=== PATIENT | female | born 1985 | race Caucasian/White ===

== ENCOUNTER 2016-12-30 14:13 | Emergency (ER) | payer MEDICAID ==
--- NOTE | 2016-12-30 15:11 | PD ---
HPI Chief Complaint Possibly leaking fluid Date Seen: Dec 30, 2016 Travel History International Travel<30 Days: No Contact w/Intl Traveler<30Days: No Known Affected Area: No History of Present Illness HPI Patient 31-year-old white female at 38 weeks 6 days presents complaining of possibly leaking fluid per vagina. She states that she just feels very wet in the pelvic area but no gross leakage of fluid no water running down her legs or anything like that, no bleeding noted regular contractions, heart rate tracing is reactive. Her amnio sure is negative today Para: 0 : 1 History Social History Alcohol Use: No Tobacco Use: No Substance Abuse: No Review of Systems General / Constitutional: No: Fever, Weight Gain, Chills, Other Eyes: No: Diploplia, Blurred Vision, Visual changes, Pain, Photophobia HENT: No: Headaches, Vertigo, Lightheadedness Cardiovascular: No: Irregular Rhythm, Chest Pain or Discomfort, Palpitations, Tachycardia, Syncope, Varicosities, Edema, Cyanosis Respiratory: No: Cough, Short of Breath, Other Gastrointestinal: No: Nausea, Vomiting, Diarrhea Genitourinary: No: Decreased Urinary Output, Oliguria Musculoskeletal: No: Limited ROM, Weakness, Cramping, Edema, Pain Skin: No Rash, No Itching, No Dryness, No Lumps, No Change in Pigmentation, No Change in Nails, No Alopecia, No Lesions Neurologic: No: Weakness, Dizziness, Syncope, Focal Abnormalities, Coordination Problem, Headache, Slurred Speech, Seizures Psychiatric: No: Depression, Suicidal Ideations, Homicidal Ideation Endocrine: No: Heat Intolerance, Cold Intolerance, Polydipsia, Polyuria, Other Physical Exam Narrative GENERAL: Well-nourished, well-developed patient. SKIN: Warm and dry. HEAD: Normocephalic and atraumatic. EYES: No scleral icterus. No injection or drainage. ENT: No nasal drainage noted. Mucous membranes pink. Airway patent. NECK: Supple, trachea midline. No JVD. CARDIOVASCULAR: Regular rate and rhythm without murmurs, gallops, or rubs. RESPIRATORY: Breath sounds equal bilaterally. No accessory muscle use. BREASTS: Bilateral exam showed no masses , no retractions, no nipple discharge. ABDOMEN/GI: Abdomen soft, non-tender, bowel sounds present, no rebound, no guarding Gravid to [39-] weeks size Fundal Height: [-39] GENITOURINARY: Amnio sure negative Membranes: [intact ] Uterine Contractions: [none-] FHT's: Category: [-1] Baseline: [133-] Reactive: [-yes] Variability: [mod-] Decels: [none-] EXTREMITIES: No cyanosis or edema. BACK: Nontender without obvious deformity. No CVA tenderness. NEUROLOGICAL: Awake and alert. Motor and sensory grossly within normal limits. Five out of 5 muscle strength in all muscle groups. Normal speech. Data Data Labs Amnio sure negative MDM Interpretation(s) Patient 31-year-old white female at 38-39 weeks presents combining of leaking fluid. Patient's had no gross ruptured membranes she's just noticed that she's felt very " wet" in the vaginal pelvic area. No bleeding or contractions noted heart rate is reactive, amnio sure was negative today Plan Plan to discharge home patient to observe her condition look for any further leakage bleeding or other problem Diagnosis Diagnosis: Primary Impression: No leakage of amniotic fluid into vagina Disposition: 01 DISCHARGE HOME Condition: Stable Pepe Thibodeaux II, MD Dec 30, 2016 15:11
== END 2016-12-30 15:19 | disposition home or self-care (01) ==
LOC: HOBED 14:13
DX: N89.8 Other specified noninflammatory disorders of vagina (principal); Z34.93 Encounter for supervision of normal pregnancy, unspecified, third trimester
CPT/HCPCS: 59025; 84112

== ENCOUNTER 2017-01-07 13:17 | Inpatient (IN) | payer MEDICAID ==
[~2017-01-07] VITALS: Ht 170.2 cm; Wt 81.2 kg
[2017-01-07] VITALS (21 sets, daily range): BP systolic 121–153; BP diastolic 66–93; PULSE 71–105; RESP 18–20; TEMP 97.4–98.4
[2017-01-07] MEDS ORDERED: LACTATED RINGER'S 1000 ML INJ 1,000 ML IV PRN (14:20)
[2017-01-07] MEDS ORDERED: SODIUM CHLOR 0.9% 1000 ML INJ 1,000 ML OTHER PRN (14:20)
[2017-01-07] MEDS ORDERED: OXYTOCIN 30 UNITS-500ML PREMIX 500 ML IV ONE (14:30)
[2017-01-07] MEDS ORDERED: ONDANSETRON HCL 4 MG/2 ML VIAL IV PRN (14:30)
[2017-01-07] MEDS ORDERED: CITRIC ACID-SODIUM CITRATE LIQ 30 ML UDC PO SCH (14:30)
[2017-01-07] MEDS ORDERED: DINOPROSTONE 10 MG VAG INSERT VAGINAL ONE (14:30)
[2017-01-07] MEDS ORDERED: MINERAL OIL 10 ML VIAL TOPICAL PRN (14:30)
[2017-01-07] MEDS ORDERED: LIDOCAINE HCL 1% 50 ML VIAL INFIL PRN (14:30)
[2017-01-07] MEDS ORDERED: LIDOCAINE HCL 1% 50 ML VIAL I-DERMAL PRN (14:30)
[2017-01-07] MEDS ORDERED: SODIUM CHLORID 0.9% 500 ML INJ 500 ML IV PRN (14:30)
--- NOTE | 2017-01-07 14:35 | HHI.HP ---
HPI Chief Complaint decreased movement, non-reassuring testing in office Date Seen: Jan 07, 2017 Time Seen: 11:30 Travel History International Travel<30 Days: No Contact w/Intl Traveler<30Days: No Known Affected Area: No History of Present Illness HPI 31 yo G1 with wise IUP at 40 wks today by LMP c/w 12 wk sonogram, seen in the office today for routine OB visit with c/o decreased movement. BPP showed decreased amniotic fluid, TAINA 6, and BPP 4/8 with -2 for tone and movement. NST reassuring but not reactive. Pt denies LOF, VB or contractions, feeling pelvic pressure. Pain 2/10 in pelvis. Discussed with patient indication for induction due to non-reassuring testing at term, sent to L&D for admission. 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) uterine fibroid (6x6cm, anterior) Obstetric History Obstetric History G1 = current, female Past Surgical History Narrative Surgical breast augmentation 2011 tonsillectomy Family History Narrative Family History personal history, cystic fibrosis carrier (father of baby negative) Family History: Negative Social History Alcohol Use: No Tobacco Use: No Substance Abuse: No Allergies-Medications (Allergen,Severity, Reaction): Coded Allergies: No Known Allergies (Unverified , 01/07/17) Review of Systems General / Constitutional: Weight Gain, No: Fever, Chills, Other Eyes: No: Diploplia, Blurred Vision, Visual changes, Pain, Photophobia HENT: No: Headaches, Vertigo, Lightheadedness Cardiovascular: No: Irregular Rhythm, Chest Pain or Discomfort, Palpitations, Tachycardia, Syncope, Varicosities, Edema, Cyanosis Respiratory: No: Cough, Short of Breath, Other Gastrointestinal: No: Nausea, Vomiting, Diarrhea Genitourinary: Pelvic Pain (pressure), No: Decreased Urinary Output, Oliguria Musculoskeletal: No: Limited ROM, Weakness, Cramping, Edema, Pain Skin: No Rash, No Itching, No Dryness, No Lumps, No Change in Pigmentation, No Change in Nails, No Alopecia, No Lesions Neurologic: No: Weakness, Dizziness, Syncope, Focal Abnormalities, Coordination Problem, Headache, Slurred Speech, Seizures Psychiatric: No: Depression, Suicidal Ideations, Homicidal Ideation Endocrine: No: Heat Intolerance, Cold Intolerance, Polydipsia, Polyuria, Other Physical Exam Narrative GENERAL: Well-nourished, well-developed patient. SKIN: Warm and dry. HEAD: Normocephalic and atraumatic. EYES: No scleral icterus. No injection or drainage. ENT: No nasal drainage noted. Mucous membranes pink. Airway patent. NECK: Supple, trachea midline. No JVD. CARDIOVASCULAR: Regular rate and rhythm without murmurs, gallops, or rubs. RESPIRATORY: Breath sounds equal bilaterally. No accessory muscle use. BREASTS: deferred. ABDOMEN/GI: Abdomen soft, non-tender, bowel sounds present, no rebound, no guarding Gravid to [40] weeks size Fundal Height: [40] GENITOURINARY: External Genitalia: intact and normal in appearance BUS glands: [wnl] Cervix: [posterior, soft] Dilatation: [1-2] Effacement: [th] Station: [-3] Presentation: [vtx] Membranes: [intact] Uterine Contractions: [none] FHT's: 130s in office on NST, reassuring but not reactive EXTREMITIES: No cyanosis, +2 edema to ankles b/l. BACK: Nontender without obvious deformity. No CVA tenderness. NEUROLOGICAL: Awake and alert. Motor and sensory grossly within normal limits. Five out of 5 muscle strength in all muscle groups. Normal speech. Data Data Vital Signs Reviewed: Yes Orders Admit To Inpatient (01/07/17 ) Code Status (01/07/17 14:20) Vital Signs (Adult) .Per protocol (01/07/17 14:20) Activity Oob Ad Pauline (01/07/17 14:20) Heart (01/07/17 14:20) Amnioinfusion (01/07/17 14:20) Urinary Catheter Management .ONCE (01/07/17 14:20) Diet Liquid (01/07/17 Dinner) Lactated Ringer's 1000 Ml Inj (Lr 1000 M (01/07/17 14:20) Lactated Ringer's 1000 Ml Inj (Lr 1000 M (01/07/17 14:20) Sodium Chlorid 0.9% 500 Ml Inj (Ns 500 M (01/07/17 14:30) Sodium Chlor 0.9% 1000 Ml Inj (Ns 1000 M (01/07/17 14:40) Lidocaine 1% Inj (50 Ml) (Xylocaine 1% I (01/07/17 14:30) Citric Acid-Sodium Citrate Liq (Bicitra (01/07/17 14:30) Ondansetron Inj (Zofran Inj) (01/07/17 14:30) Fentanyl Inj (Fentanyl Inj) (01/07/17 14:30) Fentanyl Inj (Fentanyl Inj) (01/07/17 14:30) Complete Blood Count With Diff (01/07/17 14:20) Hold Clot (01/07/17 14:20) Abo/Rh Blood Type (01/07/17 14:20) Urinalysis - C+S If Indicated (01/07/17 14:20) Resp Oxygen Non Rebreathe Mask (01/07/17 ) ^ Epidural / Intrathecal Infus (01/07/17 14:20) Oxytocin 30 Units-500ml Premix (Pitocin (01/07/17 14:30) Lidocaine 1% Inj (50 Ml) (Xylocaine 1% I (01/07/17 14:30) Light Mineral Oil (Muri-Lube Oil) (01/07/17 14:30) Inpatient Certification (01/07/17 ) Specimen To Be Collected PRN (01/07/17 14:20) ^ Labor Induction (01/07/17 14:20) ^ Vaginal Insert (01/07/17 14:20) ^ Vaginal Lavage (01/07/17 14:20) Heart (01/07/17 14:20) Sodium Chlor 0.9% 1000 Ml Inj (Ns 1000 M (01/07/17 14:20) Dinoprostone Vag Insert (Cervidil Vag In (01/07/17 14:30) Assessment/Plan Problem List: (1) Labor and delivery indication for care or intervention (2) Decreased movement affecting management of , antepartum (3) Oligohydramnios in wise in third trimester Assessment and Plan 31 yo G1 with wise IUP at 40w0d by LMP c/w 12 wk sonogram, admit for term labor induction due to decreased FM, non-reassuring office testing 1) IOL: BPP in office 4/8, NST reassuring but not reactive, TAINA borderline at 6cm, -2 for tone & movement; d/w pt risk of failed induction, intolerance , and possibility of ; pt voices understanding of risks and consents to induction; will plan cervidil on admission and additional induction measures as necessary 2) GBS negative 3) CF carrier: father of baby negative 4) increased T21 risk (1:18) on quad screen: informaseq negative, anatomy sono & growth wnl, s/p MFM consult in [place], declined amnio 5) anemia: Hgb 9.7, pt intolerance of iron tablets, increased dietary sources 6) anterior fibroid 6 x 6 cm; anterior placenta as well: d/w pt AT LENGTH risk of hemorrhage at delivery, possibility of retained placenta or difficult placental delivery, risk of need for transfusion, etc. 7) status: vertex, female, non-reassuring testing in office today Discharge Planning routine for 2-3d PP Aicha Mayo MD Jan 07, 2017 14:35
[2017-01-07] MEDS ORDERED: SODIUM CHLOR 0.9% 1000 ML INJ 1,000 ML IV PRN (14:40)
[2017-01-07] MEDS ORDERED: OXYTOCIN 30 UNITS-500ML PREMIX 500 ML IV SCH (16:15)
[2017-01-07] MEDS: LACTATED RINGER'S 1000 ML INJ 1,000 ML IV SCH ×2 (16:53→22:20)
[2017-01-07 17:24] LABS: AUTOMATED NEUTROPHIL # 10.8 TH/MM3 (1.8-7.7); BASOPHIL % 0.3 % (0.0-2.0); EOSINOPHIL # 0.1 TH/MM3 (0-0.4); EOSINOPHIL % 0.4 % (0.0-4.0); HEMATOCRIT 32.1 % (35.0-46.0); LYMPH % 13.6 % (9.0-44.0); LYMPHOCYTE # 1.8 TH/MM3 (1.0-4.8); MEAN CELL VOLUME 76.5 FL (80.0-100.0); MEAN CORPUSCULAR HEMOGLOBIN 24.3 PG (27.0-34.0); MEAN CORPUSCULAR HGB CONC 31.8 % (32.0-36.0); NEUT % 79.7 % (16.0-70.0); PLATELET COUNT 211 TH/MM3 (150-450); RED BLOOD COUNT 4.19 MIL/MM3 (4.00-5.30); RED CELL DISTRIBUTION WIDTH 17.4 % (11.6-17.2); WHITE BLOOD COUNT 13.5 TH/MM3 (4.0-11.0)
[2017-01-07 17:28] LABS: BLOOD, URINE NEG (NEG); COMMENT (UR) CULT NOT INDICATED; CULTURE IF INDICATED CULT NOT INDICATED; GLUCOSE,URINE NEG (NEG); KETONE, URINE NEG (NEG); NITRITE,URINE NEG (NEG); URINE COLOR YELLOW (YELLW/STRAW)
[2017-01-07 17:34] LABS: HEMO FLAGS AUTO DIFF
[2017-01-07 18:21] LABS: BANDS 4 % (0-6); METAMYELOCYTES 1 % (0-1); NEUTROPHIL # MANUAL DIFF 10.8 TH/MM3 (1.8-7.7); POLYS (SEG NEUTROPHILS) 75 % (16-70); WBC DIFF SAMPLE 100
[2017-01-07 18:22] LABS: PLATELET ESTIMATE SMEAR NORMAL (NORMAL); PLATELET MORPHOLOGY NORMAL (NORMAL); SCAN/DIFF FINAL DIFF MANUAL
--- NOTE | 2017-01-07 18:27 | PD.LABORPN ---
Subjective Subjective comfortable here for low fluid and some UCs excited Objective Vital Signs Vital Signs Date Time Temp Pulse Resp B/P Pulse Ox O2 Delivery O2 Flow Rate FiO2 01/07/17 18:06 98.4 78 18 134/80 01/07/17 14:29 97.4 01/07/17 14:29 98 20 01/07/17 14:28 139/91 Objective Pelvic Exam: /anterioe -1 arom clear category 1 pelvis clinically adequate EWF 7 Assessment/Plan Problem List: (1) Labor and delivery indication for care or intervention (2) Decreased movement affecting management of , antepartum (3) Oligohydramnios in wise in third trimester Assessment and Plan 40+ week IUP oligo on BPP cecil for arom and pitocin if indicated. Liss Peacock MD Jan 07, 2017 18:27
[2017-01-07] MEDS ORDERED: fentaNYL 2MCG-BUPIV 0.125% INJ 100 ML ONE (21:26)
[2017-01-07] MEDS ORDERED: ePHEDrine/NS 25 MG/5 ML SYR ONE (21:27)
[2017-01-07] MEDS ORDERED: NO SYSTEM NARCOTICS PRN (22:30)
[2017-01-07] MEDS ORDERED: ePHEDrine/NS 25 MG/5 ML SYR IV PRN (22:30)
[2017-01-07] MEDS ORDERED: fentaNYL 2MCG-BUPIV 0.125% 100 ML EPIDURAL SCH (22:30)
[2017-01-07] MEDS ORDERED: DO NOT ADMINISTER ANTICOAGULANTS PRN (22:30)
[2017-01-08] VITALS (16 sets, daily range): BP systolic 107–137; BP diastolic 56–86; PULSE 61–87; RESP 16–20; TEMP 97.8–98.6
--- NOTE | 2017-01-08 02:27 | PD.OB.DELI ---
Anesthesia: Epidural Episiotomy: None Vaginal Delivery: Normal Presentation: Occiput anterior Nuchal Cord: None Delayed cord clamping (45 sec): Yes Infant: Female One Minute : 9 Five Minute : 9 Weight: 7 Placenta: Spontaneous delivery Laceration: 2 deg Repair: Chromic running Estimated blood loss: average Liss Peacock MD Jan 08, 2017 02:27
[2017-01-08] MEDS ORDERED: WITCH HAZEL 50%/GLYCERIN 12.5% 40 PAD JAR TOPICAL PRN (02:30)
[2017-01-08] MEDS ORDERED: ONDANSETRON ODT 4 MG TAB PO PRN (02:30)
[2017-01-08] MEDS ORDERED: BENZOCAINE 20% TOPICAL SPRAY 60 ML CAN TOPICAL PRN (02:30)
[2017-01-08] MEDS ORDERED: ALUMINUM/MAGNESIUM/SIMETH 30 ML CUP PO PRN (02:30)
[2017-01-08] MEDS ORDERED: SODIUM CHLORIDE 0.9% FLUSH 10 ML FLUSH IV FLUSH PRN (02:30)
[2017-01-08] MEDS ORDERED: OXYTOCIN 30 UNITS-500ML PREMIX 500 ML IV SCH (02:30)
[2017-01-08] MEDS ORDERED: ZOLPIDEM TARTRATE 5 MG TAB PO PRN (02:30)
[2017-01-08] MEDS ORDERED: ACETAMINOPHEN 325 MG TAB PO PRN (02:30)
[2017-01-08] MEDS ORDERED: ONDANSETRON HCL 4 MG/2 ML VIAL ONE (06:22)
[2017-01-08] MEDS: IBUPROFEN 600 MG TAB PO PRN (06:35)
[2017-01-08] MEDS ORDERED: CARBOPROST TROMETHAMINE 250 MCG/ML VIAL ONE (06:40)
[2017-01-08] MEDS ORDERED: MEPERIDINE HCL 50 MG/ML VIAL ONE (06:45)
--- NOTE | 2017-01-08 07:51 | HHI.OB ---
Subjective Post Day: 0 Remarks Had significant PPH and required manual evacuation of uterus with copious clot. very uncomfortable Objective Vitals/I&O Vital Signs Date Time Temp Pulse Resp B/P Pulse Ox O2 Delivery O2 Flow Rate FiO2 01/08/17 06:30 18 01/08/17 06:08 18 137/72 01/08/17 06:08 69 01/08/17 05:00 82 18 01/08/17 05:00 133/75 01/08/17 03:15 18 01/08/17 02:56 18 01/08/17 02:45 84 18 133/73 01/08/17 02:30 85 18 122/76 01/08/17 01:23 18 01/08/17 01:23 98.0 01/08/17 00:45 18 01/08/17 00:43 61 113/56 01/08/17 00:15 18 01/07/17 23:45 18 01/07/17 22:56 18 121/66 01/07/17 22:50 90 01/07/17 22:32 18 01/07/17 22:22 18 01/07/17 22:22 122/76 01/07/17 22:20 74 01/07/17 22:10 90 01/07/17 22:08 153/73 01/07/17 22:04 18 01/07/17 21:55 148/93 01/07/17 21:55 105 01/07/17 21:50 81 01/07/17 21:49 18 146/81 01/07/17 21:45 71 01/07/17 21:15 142/73 01/07/17 21:15 98.0 88 01/07/17 21:14 18 01/07/17 20:30 18 01/07/17 19:53 18 01/07/17 19:15 18 01/07/17 18:06 98.4 78 18 134/80 01/07/17 14:29 97.4 01/07/17 14:29 98 20 01/07/17 14:28 139/91 Objective Remarks GENERAL: Well-nourished, well-developed patient. CARDIOVASCULAR: Regular rate and rhythm without murmurs, gallops, or rubs. RESPIRATORY: Breath sounds equal bilaterally. No accessory muscle use. ABDOMEN/GI: Abdomen soft, non-tender. Fundus: Firm,but above U GENITOURINARY: Light to moderate bleeding now--watch for more clots EXTREMITIES: No cyanosis or edema, non-tender, without signs of DVT. Medications and IVs Current Medications Medications (Trade) Dose Ordered Sig/Shruthi Route Start Time Stop Time Status Last Admin (NS Flush) 2 ml BID IV FLUSH 01/08/17 09:00 (NS Flush) 2 ml UNSCH PRN IV FLUSH 01/08/17 02:30 (Tylenol) 650 mg Q4H PRN PO 01/08/17 02:30 (Motrin) 600 mg Q6H PRN PO 01/08/17 02:30 01/08/17 06:35 (Americaine 20% Top Spr) 1 spray Q4H PRN TOPICAL 01/08/17 02:30 01/08/17 06:35 (Tucks Pads) 1 applic QID PRN TOPICAL 01/08/17 02:30 01/08/17 06:35 (Kathy-Colace) 2 tab Q12H PRN PO 01/08/17 02:30 (Ambien) 5 mg HS PRN PO 01/08/17 02:30 (M-M-R Ii Inj) 0.5 ml ONCE ONCE SQ 01/08/17 16:00 01/08/17 16:01 (Boostrix Inj) 0.5 ml ONCE ONCE IM 01/08/17 16:00 01/08/17 16:01 (Mag-Al Plus Susp Liq) 15 ml Q8H PRN PO 01/08/17 02:30 (Zofran Odt) 4 mg Q6H PRN PO 01/08/17 02:30 Assessment/Plan Problem List: (1) Labor and delivery indication for care or intervention (2) Decreased movement affecting management of , antepartum (3) Oligohydramnios in wise in third trimester Assessment and Plan Unremarkable delivery but difficulty with bleeding as predicted by presence of 6cm anterior fibroid if manual evacuation did not adequately address may need D &C Discharge Planning routine for 2-3d PP if bleeding does not recur. H & H and Ferritin this am. Liss Peacock MD Jan 08, 2017 07:51
[2017-01-08] MEDS ORDERED: SODIUM CHLORIDE 0.9% FLUSH 10 ML FLUSH IV FLUSH SCH (09:00)
[2017-01-08 11:11] LABS: AUTOMATED NEUTROPHIL # 25.2 TH/MM3 (1.8-7.7); BASOPHIL # 0.1 TH/MM3 (0-0.2); BASOPHIL % 0.3 % (0.0-2.0); EOSINOPHIL % 0.1 % (0.0-4.0); LYMPH % 6.2 % (9.0-44.0); LYMPHOCYTE # 1.8 TH/MM3 (1.0-4.8); MEAN CELL VOLUME 76.2 FL (80.0-100.0); MEAN CORPUSCULAR HEMOGLOBIN 24.5 PG (27.0-34.0); MEAN CORPUSCULAR HGB CONC 32.2 % (32.0-36.0); MONO % 4.4 % (0.0-8.0); PLATELET COUNT 221 TH/MM3 (150-450); RED CELL DISTRIBUTION WIDTH 17.3 % (11.6-17.2); WHITE BLOOD COUNT 28.3 TH/MM3 (4.0-11.0)
[2017-01-08 11:25] LABS: HEMO FLAGS AUTO DIFF
[2017-01-08] MEDS ORDERED: DIPHTH/TETANUS/ACEL PERTUSSIS (BOOSTER) 0.5 ML VIAL/PFS IM ONE (16:00)
[2017-01-08] MEDS ORDERED: MEASLES, MUMPS, RUBELLA VACCINE 0.5 ML VIAL SQ ONE (16:00)
[2017-01-08] MEDS ORDERED: AMMONIA AROMATIC INHALANT 0.33 ML ONE (23:11)
[2017-01-09] MEDS: DOCUSATE SODIUM 50 MG/SENNA 8.6 MG TAB PO PRN ×2 (00:25→22:47)
[2017-01-09] MEDS: IBUPROFEN 600 MG TAB PO PRN ×4 (00:25→22:46)
[2017-01-09 03:00] VITALS: BP 105/73; PULSE 74; RESP 18; TEMP 98.5
[2017-01-09 08:00] VITALS: BP 111/69; PULSE 76; RESP 16; TEMP 98.2; O2SAT 97
--- NOTE | 2017-01-09 11:19 | HHI.OB ---
Subjective Post Day: 1 Remarks no complaints Objective Vitals/I&O Vital Signs Date Time Temp Pulse Resp B/P Pulse Ox O2 Delivery O2 Flow Rate FiO2 01/09/17 08:00 98.2 76 16 111/69 97 01/09/17 03:00 98.5 74 18 105/73 01/08/17 20:05 98.6 82 20 107/61 01/08/17 15:05 98.2 01/08/17 15:05 87 18 127/82 01/08/17 11:45 74 16 116/79 01/08/17 11:45 98.6 Objective Remarks GENERAL: Well-nourished, well-developed patient. CARDIOVASCULAR: Regular rate and rhythm without murmurs, gallops, or rubs. RESPIRATORY: Breath sounds equal bilaterally. No accessory muscle use. ABDOMEN/GI: Abdomen soft, non-tender. Fundus: Firm GENITOURINARY: Light to moderate bleeding now--watch for more clots EXTREMITIES: No cyanosis or edema, non-tender, without signs of DVT. Medications and IVs Current Medications Medications (Trade) Dose Ordered Sig/Shruthi Route Start Time Stop Time Status Last Admin (NS Flush) 2 ml BID IV FLUSH 01/08/17 09:00 01/09/17 00:26 (NS Flush) 2 ml UNSCH PRN IV FLUSH 01/08/17 02:30 (Tylenol) 650 mg Q4H PRN PO 01/08/17 02:30 (Motrin) 600 mg Q6H PRN PO 01/08/17 02:30 01/09/17 07:21 (Americaine 20% Top Spr) 1 spray Q4H PRN TOPICAL 01/08/17 02:30 01/08/17 06:35 (Tucks Pads) 1 applic QID PRN TOPICAL 01/08/17 02:30 01/08/17 06:35 (Kathy-Colace) 2 tab Q12H PRN PO 01/08/17 02:30 01/09/17 00:25 (Ambien) 5 mg HS PRN PO 01/08/17 02:30 (Mag-Al Plus Susp Liq) 15 ml Q8H PRN PO 01/08/17 02:30 (Zofran Odt) 4 mg Q6H PRN PO 01/08/17 02:30 01/08/17 10:55 Assessment/Plan Problem List: (1) Labor and delivery indication for care or intervention (2) Decreased movement affecting management of , antepartum (3) Oligohydramnios in wise in third trimester (4) Leiomyoma (5) Vaginal delivery Assessment and Plan s/p _PPD#1 Unremarkable delivery but difficulty with bleeding as predicted by presence of 6cm anterior fibroid Discharge Planning routine for 2-3d PP if bleeding does not recur. Attending Attestation pt seen by Ayala Harry MD Jan 09, 2017 11:19
[2017-01-10] MEDS: IBUPROFEN 600 MG TAB PO PRN (08:31)
--- NOTE | 2017-01-10 10:10 | HHI.OB ---
Subjective Post Day: 2 Remarks no complaints, Objective Other Results vss afeb Objective Remarks GENERAL: Well-nourished, well-developed patient. CARDIOVASCULAR: Regular rate and rhythm without murmurs, gallops, or rubs. RESPIRATORY: Breath sounds equal bilaterally. No accessory muscle use. ABDOMEN/GI: Abdomen soft, non-tender. Fundus: Firm GENITOURINARY: Light to moderate bleeding now--watch for more clots EXTREMITIES: No cyanosis or edema, non-tender, without signs of DVT. Medications and IVs Current Medications Medications (Trade) Dose Ordered Sig/Shruthi Route Start Time Stop Time Status Last Admin (NS Flush) 2 ml BID IV FLUSH 01/08/17 09:00 01/09/17 00:26 (NS Flush) 2 ml UNSCH PRN IV FLUSH 01/08/17 02:30 (Tylenol) 650 mg Q4H PRN PO 01/08/17 02:30 01/10/17 08:31 (Motrin) 600 mg Q6H PRN PO 01/08/17 02:30 01/10/17 08:31 (Americaine 20% Top Spr) 1 spray Q4H PRN TOPICAL 01/08/17 02:30 01/08/17 06:35 (Tucks Pads) 1 applic QID PRN TOPICAL 01/08/17 02:30 01/08/17 06:35 (Kathy-Colace) 2 tab Q12H PRN PO 01/08/17 02:30 01/09/17 22:47 (Ambien) 5 mg HS PRN PO 01/08/17 02:30 (Mag-Al Plus Susp Liq) 15 ml Q8H PRN PO 01/08/17 02:30 (Zofran Odt) 4 mg Q6H PRN PO 01/08/17 02:30 01/08/17 10:55 Assessment/Plan Problem List: (1) Labor and delivery indication for care or intervention (2) Decreased movement affecting management of , antepartum (3) Oligohydramnios in wise in third trimester (4) Leiomyoma (5) Vaginal delivery Assessment and Plan s/p _PPD#2 Unremarkable delivery but difficulty with bleeding as predicted by presence of 6cm anterior fibroid Discharge Planning routine for 2-3d PP if bleeding does not recur. Attending Attestation pt seen by Ayala Harry MD Jan 10, 2017 10:10
[2017-01-10] MEDS ORDERED: IBUP-232 PO (10:11)
--- NOTE | 2017-01-10 10:11 | HHI.DCPOC ---
Discharge Care Plan Your Health Problems Are: Pelvic pain Report Symptoms to Your Doctor -Temperature above 100.5 degrees -Redness, of incision or excessive or foul smelling drainage -Unusual pain or calf pain -Increased vaginal bleeding -Painful or difficulty urinating -Feelings of extreme sadness or anxiety after 2 weeks Goals to Promote Your Health * To prevent worsening of your condition and complications * To maintain your health at the optimal level Directions to Meet Your Goals Take your medications as prescribed Follow your dietary instruction Follow activity as directed Ensure plenty of rest for recovery Drink fluids for hydration Keep your appointments as scheduled Take your immunizations and boosters as scheduled If your symptoms worsen call your PCP, if no PCP go to Urgent Care Center or Emergency Room Smoking is Dangerous to Your Health. Avoid second hand smoke Call the 24-hour crisis hotline for domestic abuse at Ayala Ramirez MD Jan 10, 2017 10:11
== END 2017-01-10 14:41 | disposition home or self-care (01) | DRG 768 ==
LOC: H2EB 13:17 → H1EA 01-08 11:36
PROVIDERS: ADMIT Obstetrics & Gynecology; ATTEND Obstetrics & Gynecology
PROC: 3E033VJ Introduction of Other Hormone into Peripheral Vein, Percutaneous Approach (ICD-10-PCS; 2017-01-07)
PROC: 10907ZC Drainage of Amniotic Fluid, Therapeutic from Products of Conception, Via Natural or Artificial Opening (ICD-10-PCS; 2017-01-07)
PROC: 10E0XZZ Delivery of Products of Conception, External Approach (ICD-10-PCS; principal; 2017-01-08)
PROC: 0U997ZZ Drainage of Uterus, Via Natural or Artificial Opening (ICD-10-PCS; 2017-01-08)
PROC: 0KQM0ZZ Repair Perineum Muscle, Open Approach (ICD-10-PCS; 2017-01-08)
DX: O36.8130 Decreased fetal movements, third trimester, not applicable or unspecified (principal); O41.03X0 Oligohydramnios, third trimester, not applicable or unspecified; O72.1 Other immediate postpartum hemorrhage; O34.13 Maternal care for benign tumor of corpus uteri, third trimester; D25.9 Leiomyoma of uterus, unspecified; O99.02 Anemia complicating childbirth; O70.1 Second degree perineal laceration during delivery; Z37.0 Single live birth; Z3A.40 40 weeks gestation of pregnancy
CPT/HCPCS: 59025; 81001; 82728; 85007; 85027; 86900; 86901; J2175; J2405; J2590; J7120